=== PATIENT | male | born 1930 ===

== ENCOUNTER 2017-08-26 19:48 | Inpatient (IN) | payer MEDICARE ==
[~2017-08-26] VITALS: Ht 180.3 cm; Wt 80.2 kg
[~2017-08-26 19:48] MED LIST: ALPR.5 PO; AMLO10 PO; AMLO5 PO; ASPI81CH PO; CARB100 PO; CENTRUM SILVER1 EAC2 PO; CIPR250 PO; Carbidopa-Levo1 EAC1 PO; DULOXETINE HCL20 MG PO; ENOX30I SC; Lopressor 25 mg25 MG PO; MELA3 PO; METAMUCIL660 GM; METO100ER PO; OXYACE5T PO; PARO20 PO; QUET25 PO; TAMS.4ER PO
[2017-08-26] MEDS ORDERED: AMOCLA500 PO (20:11)
[2017-08-26] MEDS ORDERED: Acidophilus La100 GM PO (20:12)
[2017-08-26] MEDS ORDERED: Hydrocodone-Ap1 EA23 PO (20:13)
[2017-08-26] MEDS ORDERED: RIVASTIGMINE1.5 MG PO (20:15)
[2017-08-26 20:58] LABS: BASOPHILS ABSOLUTE AUTO 0.05 K/mm3 (0.00-0.23); BASOPHILS PERCENT AUTO 0 % (0-2); EOSINOPHILS ABSOLUTE AUTO 0.04 K/mm3 (0.00-0.68); EOSINOPHILS PERCENT AUTO 0 % (0-6); Hematocrit 40.2 % (37.0-53.0); Hemoglobin 13.2 g/dL (13.5-17.5); IMMATURE GRAN ABSOLUTE AUTO 0.05 K/mm3 (0.00-0.10); IMMATURE GRAN PERCENT AUTO 0 % (0-1); LYMPHOCYTES ABSOLUTE AUTO 0.87 K/mm3 (0.84-5.20); LYMPHOCYTES PERCENT AUTO 6 % (21-46); MONOCYTES PERCENT AUTO 11 % (4-13); Mean Corpuscular HGB 29.2 pg (26.0-34.0); Mean Corpuscular HGB Conc 32.8 g/dL (31.5-36.5); Mean Corpuscular Volume 89 fL (80-100); Mean Platelet Volume 9.6 fL (9.1-12.4); NEUTROPHILS ABSOLUTE AUTO 11.37 K/mm3 (1.96-9.15); NEUTROPHILS PERCENT AUTO 82 % (41-73); Platelet Count 181 K/mm3 (150-400); RDW Standard Deviation 45.4 fL (35.1-46.3); Red Blood Cell Count 4.52 M/mm3 (4.30-5.90); White Blood Cell Count 13.88 K/mm3 (4.00-11.30)
[2017-08-26 21:08] LABS: BODY FLUID RBC 0.053 (0-0)
[2017-08-26 21:17] LABS: Alanine Aminotransfer (ALT/SGP 12 U/L (12-78); Albumin, Blood 2.8 g/dL (3.4-5.0); Albumin/Globulin Ratio 0.9 (0.8-1.8); Alk Phos 88 U/L (50-136); Anion Gap 8 mmol/L (6-16); Aspartate Aminotrans (AST/SGOT 12 U/L (12-37); Bilirubin, Total 1.9 mg/dL (0.1-1.0); Blood Urea Nitrogen 16 mg/dL (8-24); Bun/Creatinine Ratio 20.4 (12.0-20.0); CO2, Blood 26 mmol/L (21-32); Chloride, Blood 103 mmol/L (98-108); Creatinine, Blood 0.79 mg/dL (0.60-1.20); Globulin, Blood 3.2 g/dL (2.2-4.0); Glomerular Filtration Rate >60 (60-); Glucose, Blood 139 mg/dL (70-99); Magnesium, Blood 2.3 mg/dL (1.6-2.4); Potassium, Blood 3.8 mmol/L (3.5-5.5); Sodium, Blood 137 mmol/L (136-145)
[2017-08-26 21:50] LABS: RBC Count, Synovial Fluid 5300 /mm3 (0-0); WBC Count, Synovial Fluid 71860 /mm3 (0-180)
[2017-08-26 21:52] LABS: Monocytes/Macrophages, Synovia 1 % (0-65); Neutrophils, Synovial Fluid 99 % (0-24)
[2017-08-26 21:53] LABS: Appearance, Synovial Fluid Cloudy (Clear); Color, Synovial Fluid Red (None-P Yel)
[2017-08-26] MEDS ORDERED: DOCUPRENE100 MG PO (23:40)
[2017-08-26] MEDS ORDERED: CENTRUM SILVER1 EAC2 PO (23:40)
[2017-08-26] MEDS ORDERED: NATURE'S TEARS15 M1 BOTHEYES (23:41)
[2017-08-26] MEDS ORDERED: Flonase 0.05% N16 GM (23:41)
[2017-08-26] MEDS ORDERED: IBUP600 PO (23:42)
[2017-08-28 05:07] LABS: Hematocrit 39.5 % (37.0-53.0); Hemoglobin 12.8 g/dL (13.5-17.5); Mean Corpuscular HGB 28.6 pg (26.0-34.0); Mean Corpuscular HGB Conc 32.4 g/dL (31.5-36.5); Mean Corpuscular Volume 88 fL (80-100); Platelet Count 176 K/mm3 (150-400); RDW Standard Deviation 45.1 fL (35.1-46.3); Red Blood Cell Count 4.48 M/mm3 (4.30-5.90); White Blood Cell Count 10.04 K/mm3 (4.00-11.30)
[2017-08-28 05:31] LABS: Anion Gap 9 mmol/L (6-16); Blood Urea Nitrogen 13 mg/dL (8-24); Bun/Creatinine Ratio 19.7 (12.0-20.0); CO2, Blood 25 mmol/L (21-32); Calcium, Blood 7.8 mg/dL (8.5-10.1); Chloride, Blood 107 mmol/L (98-108); Creatinine, Blood 0.66 mg/dL (0.60-1.20); Glomerular Filtration Rate >60 (60-); Glucose, Blood 112 mg/dL (70-99); Potassium, Blood 3.6 mmol/L (3.5-5.5); Sodium, Blood 141 mmol/L (136-145)
[2017-08-28 23:20] LABS: Vancomycin, Trough 2.7 ug/mL (5.0-10.0)
[2017-08-29 23:26] LABS: Vancomycin, Trough 12.5 ug/mL (5.0-10.0)
[2017-08-31 05:39] LABS: Hematocrit 42.4 % (37.0-53.0); Hemoglobin 13.8 g/dL (13.5-17.5); Mean Corpuscular HGB 28.6 pg (26.0-34.0); Mean Corpuscular HGB Conc 32.5 g/dL (31.5-36.5); Mean Corpuscular Volume 88 fL (80-100); Mean Platelet Volume 9.3 fL (9.1-12.4); Platelet Count 271 K/mm3 (150-400); RDW Coefficient Variation 13.9 % (11.7-14.2); RDW Standard Deviation 44.8 fL (35.1-46.3); Red Blood Cell Count 4.82 M/mm3 (4.30-5.90); White Blood Cell Count 6.25 K/mm3 (4.00-11.30)
[2017-08-31 05:59] LABS: Anion Gap 6 mmol/L (6-16); Blood Urea Nitrogen 9 mg/dL (8-24); Bun/Creatinine Ratio 12.9 (12.0-20.0); CO2, Blood 30 mmol/L (21-32); Calcium, Blood 8.3 mg/dL (8.5-10.1); Chloride, Blood 106 mmol/L (98-108); Glomerular Filtration Rate >60 (60-); Glucose, Blood 125 mg/dL (70-99); Potassium, Blood 3.8 mmol/L (3.5-5.5); Sodium, Blood 142 mmol/L (136-145)
[2017-08-31 18:17] LABS: Source, Urine Voided
[2017-08-31 18:29] LABS: Appearance, Urine Clear (Clear); Bilirubin, Urine Neg (Neg); Blood, Urine 1+ (Neg); Color, Urine Yellow (P-Yellow); Glucose Qualitative, Urine Neg (Neg); Ketones, Urine 1+ (Neg); Leukocyte Esterase, Urine Neg (Neg); Nitrite, Urine Neg (Neg); Protein, Urine Neg (Neg); Specific Gravity, Urine 1.015 (1.003-1.022); Urobilinogen, Urine NORM (Normal)
[2017-08-31 18:44] LABS: Bacteria Not Seen /hpf; Red Blood Cells, Urine 0-2 /hpf (0-2); Squamous Epithelial Cells Not Seen /hpf (Few); White Blood Cells, Urine Not Seen /hpf (0-5)
[2017-09-01] MEDS ORDERED: CEPH500 PO (11:30)
[2018-04-06] MEDS ORDERED: VICODIN 5-3001 EACH PO (18:27)
== END 2017-09-01 13:20 | disposition home health service (06) | DRG 500 ==
LOC: ER 19:48 → MEDS 22:27 → ENPENDDIS 09-01 10:16 → MEDS 09-01 13:20
PROVIDERS: Emergency Medicine; Internal Medicine
PROC: 0M933ZX Drainage of Right Elbow Bursa and Ligament, Percutaneous Approach, Diagnostic (ICD-10-PCS; 2017-08-26)
PROC: 0MD30ZZ Extraction of Right Elbow Bursa and Ligament, Open Approach (ICD-10-PCS; principal; 2017-08-27)
PROC: 3E0234Z Introduction of Serum, Toxoid and Vaccine into Muscle, Percutaneous Approach (ICD-10-PCS; 2017-08-27)
DX: M71.121 Other infective bursitis, right elbow (principal); G92 Toxic encephalopathy; G62.9 Polyneuropathy, unspecified; L03.113 Cellulitis of right upper limb; G20 Parkinson's disease; I48.0 Paroxysmal atrial fibrillation; F02.80 Dementia in other diseases classified elsewhere, unspecified severity, without behavioral disturbance, psychotic disturbance, mood disturbance, and anxiety; B95.61 Methicillin susceptible Staphylococcus aureus infection as the cause of diseases classified elsewhere; I10 Essential (primary) hypertension; F41.8 Other specified anxiety disorders; F41.9 Anxiety disorder, unspecified; R29.6 Repeated falls; N40.0 Benign prostatic hyperplasia without lower urinary tract symptoms; R41.0 Disorientation, unspecified; T38.3X5A Adverse effect of insulin and oral hypoglycemic [antidiabetic] drugs, initial encounter; Y92.239 Unspecified place in hospital as the place of occurrence of the external cause; Z66 Do not resuscitate; Z23 Encounter for immunization; Z79.82 Long term (current) use of aspirin; Z79.891 Long term (current) use of opiate analgesic; Z79.899 Other long term (current) drug therapy
CPT/HCPCS: 20610; 36415; 70450; 71045; 73080; 80048; 80053; 80202; 81001; 83605; 83735; 85025; 85027; 87040; 87070; 87075; 87077; 87147; 87186; 87205; 89051; 93005; 93010; 96365; 97110; 97116; 97162; 97530; 99285; G8978; G8979; J0690; J1650; J1885; J2060; J3370; J7030; Q2038

== ENCOUNTER 2017-10-07 07:30 | Day surgery (SDC) | payer MEDICARE ==
[~2017-10-07 07:30] MED LIST changes: +AMOCLA500 PO; +Acidophilus La100 GM PO; +CEPH500 PO; +DOCUPRENE100 MG PO; +Flonase 0.05% N16 GM; +Hydrocodone-Ap1 EA23 PO; +IBUP600 PO; +NATURE'S TEARS15 M1 BOTHEYES; +RIVASTIGMINE1.5 MG PO
[2017-10-08] MEDS ORDERED: METO100ER PO (15:23)
[2017-10-08] MEDS ORDERED: ASPI81CH PO (15:23)
[2017-10-08] MEDS ORDERED: AMLO10 PO (15:24)
[2017-10-08] MEDS ORDERED: RIVASTIGMINE1.5 MG PO (15:24)
[2017-10-08] MEDS ORDERED: CARBI50 ×2 (15:25→15:26)
[2017-10-08] MEDS ORDERED: MIRT30 PO (15:26)
[2017-10-08] MEDS ORDERED: QUET100 PO (15:27)
== END 2017-10-07 10:23 | disposition home or self-care (01) ==
LOC: WOUND 07:30
DX: S51.001A Unspecified open wound of right elbow, initial encounter (principal); M70.20 Olecranon bursitis, unspecified elbow; G20 Parkinson's disease; G60.9 Hereditary and idiopathic neuropathy, unspecified; R26.89 Other abnormalities of gait and mobility; I10 Essential (primary) hypertension; I48.91 Unspecified atrial fibrillation
CPT/HCPCS: G0463

== ENCOUNTER 2017-10-08 14:24 | Emergency (ER) | payer MEDICARE ==
[~2017-10-08] VITALS: Ht 177.8 cm; Wt 72.6 kg
[2017-10-08 14:52] LABS: BASOPHILS ABSOLUTE AUTO 0.08 K/mm3 (0.00-0.23); BASOPHILS PERCENT AUTO 2 % (0-2); EOSINOPHILS ABSOLUTE AUTO 0.17 K/mm3 (0.00-0.68); EOSINOPHILS PERCENT AUTO 3 % (0-6); Hematocrit 43.3 % (37.0-53.0); Hemoglobin 13.5 g/dL (13.5-17.5); IMMATURE GRAN ABSOLUTE AUTO 0.01 K/mm3 (0.00-0.10); IMMATURE GRAN PERCENT AUTO 0 % (0-1); LYMPHOCYTES ABSOLUTE AUTO 1.53 K/mm3 (0.84-5.20); LYMPHOCYTES PERCENT AUTO 28 % (21-46); MONOCYTES ABSOLUTE AUTO 0.74 K/mm3 (0.16-1.47); MONOCYTES PERCENT AUTO 14 % (4-13); Mean Corpuscular HGB Conc 31.2 g/dL (31.5-36.5); Mean Corpuscular Volume 90 fL (80-100); NEUTROPHILS ABSOLUTE AUTO 2.93 K/mm3 (1.96-9.15); NEUTROPHILS PERCENT AUTO 54 % (41-73); Platelet Count 328 K/mm3 (150-400); RDW Coefficient Variation 14.3 % (11.7-14.2); RDW Standard Deviation 46.4 fL (35.1-46.3); Red Blood Cell Count 4.83 M/mm3 (4.30-5.90); White Blood Cell Count 5.46 K/mm3 (4.00-11.30)
[2017-10-08 15:04] LABS: Prothrombin Time Results 10.4 Sec (9.7-11.5)
[2017-10-08 15:09] LABS: Alanine Aminotransfer (ALT/SGP 12 U/L (12-78); Albumin, Blood 2.8 g/dL (3.4-5.0); Albumin/Globulin Ratio 0.8 (0.8-1.8); Alk Phos 113 U/L (50-136); Anion Gap 5 mmol/L (6-16); Aspartate Aminotrans (AST/SGOT 18 U/L (12-37); Bilirubin, Total 0.7 mg/dL (0.1-1.0); Blood Urea Nitrogen 11 mg/dL (8-24); CO2, Blood 29 mmol/L (21-32); Calcium, Blood 8.2 mg/dL (8.5-10.1); Chloride, Blood 108 mmol/L (98-108); Creatinine, Blood 0.78 mg/dL (0.60-1.20); Globulin, Blood 3.5 g/dL (2.2-4.0); Glomerular Filtration Rate >60 (60-); Glucose, Blood 96 mg/dL (70-99); Potassium, Blood 4.2 mmol/L (3.5-5.5); Sodium, Blood 142 mmol/L (136-145); Total Protein, Blood 6.3 g/dL (6.4-8.2); Troponin I <0.015 ng/mL (0.000-0.040)
[2017-10-08] MEDS ORDERED: METO100ER PO (15:23)
[2017-10-08] MEDS ORDERED: ASPI81CH PO (15:23)
[2017-10-08] MEDS ORDERED: AMLO10 PO (15:24)
[2017-10-08] MEDS ORDERED: RIVASTIGMINE1.5 MG PO (15:24)
[2017-10-08] MEDS ORDERED: CARBI50 ×2 (15:25→15:26)
[2017-10-08] MEDS ORDERED: MIRT30 PO (15:26)
[2017-10-08] MEDS ORDERED: QUET100 PO (15:27)
== END 2017-10-08 18:00 | disposition home or self-care (01) ==
LOC: ER 14:24
PROVIDERS: Nurse Practitioner Family
DX: R41.82 Altered mental status, unspecified (principal); I10 Essential (primary) hypertension; G20 Parkinson's disease; I48.91 Unspecified atrial fibrillation; N40.0 Benign prostatic hyperplasia without lower urinary tract symptoms; Z91.09 Other allergy status, other than to drugs and biological substances; Z79.82 Long term (current) use of aspirin; Z79.899 Other long term (current) drug therapy
CPT/HCPCS: 70450; 73080; 80053; 81000; 83605; 84484; 85025; 85610; 87070; 87075; 87077; 87205; 93005; 93010

== ENCOUNTER 2017-10-11 08:39 | Day surgery (SDC) | payer MEDICARE ==
[~2017-10-11 08:39] MED LIST changes: +CARBI50; +MIRT30 PO; +QUET100 PO
== END 2017-10-11 23:21 | disposition home or self-care (01) ==
LOC: WOUND 08:39
PROC: 0H5 Skin and Breast, Destruction (ICD-10-PCS; principal; 2017-10-11)
DX: S51.001A Unspecified open wound of right elbow, initial encounter (principal); M70.20 Olecranon bursitis, unspecified elbow; G20 Parkinson's disease; G60.9 Hereditary and idiopathic neuropathy, unspecified; R26.89 Other abnormalities of gait and mobility; I10 Essential (primary) hypertension
CPT/HCPCS: G0463

== ENCOUNTER 2017-10-18 10:15 | Day surgery (SDC) | payer MEDICARE | END 2017-10-18 12:10 | disposition home or self-care (01) | LOC: WOUND 10:15 | DX: Z48.00 Encounter for change or removal of nonsurgical wound dressing (principal); M70.20 Olecranon bursitis, unspecified elbow; G20 Parkinson's disease; G60.9 Hereditary and idiopathic neuropathy, unspecified; R26.89 Other abnormalities of gait and mobility; I10 Essential (primary) hypertension | CPT/HCPCS: G0463 ==

== ENCOUNTER 2017-10-22 10:28 | Day surgery (SDC) | payer MEDICARE ==
[~2017-10-22] VITALS: Ht 175.3 cm; Wt 78.1 kg
== END 2017-10-22 14:55 | disposition home or self-care (01) ==
LOC: ORSCSDS 10:28
PROVIDERS: Orthopaedic Surgery
PROC: 0R9L0ZX Drainage of Right Elbow Joint, Open Approach, Diagnostic (ICD-10-PCS; principal; 2017-10-22 12:00)
DX: M70.21 Olecranon bursitis, right elbow (principal); I10 Essential (primary) hypertension; G20 Parkinson's disease; F02.80 Dementia in other diseases classified elsewhere, unspecified severity, without behavioral disturbance, psychotic disturbance, mood disturbance, and anxiety; Z79.82 Long term (current) use of aspirin; Z79.899 Other long term (current) drug therapy
CPT/HCPCS: 88304; J0690; J1100; J2405; J3010; J7040; J7120

== ENCOUNTER 2017-10-25 10:06 | Day surgery (SDC) | payer MEDICARE | END 2017-10-25 22:47 | disposition home or self-care (01) | LOC: WOUND 10:06 | DX: Z48.00 Encounter for change or removal of nonsurgical wound dressing (principal); M70.20 Olecranon bursitis, unspecified elbow; G20 Parkinson's disease; F02.80 Dementia in other diseases classified elsewhere, unspecified severity, without behavioral disturbance, psychotic disturbance, mood disturbance, and anxiety; I48.2 Chronic atrial fibrillation | CPT/HCPCS: 87070; 87205; G0463 ==

== ENCOUNTER 2017-11-01 09:07 | Day surgery (SDC) | payer MEDICARE | END 2017-11-01 22:59 | disposition home or self-care (01) | LOC: WOUND 09:07 | DX: Z48.00 Encounter for change or removal of nonsurgical wound dressing (principal); M70.20 Olecranon bursitis, unspecified elbow; G20 Parkinson's disease; G60.9 Hereditary and idiopathic neuropathy, unspecified; R26.89 Other abnormalities of gait and mobility; I10 Essential (primary) hypertension | CPT/HCPCS: G0463 ==

== ENCOUNTER 2017-11-08 10:00 | Day surgery (SDC) | payer MEDICARE | END 2017-11-08 11:16 | disposition home or self-care (01) | LOC: WOUND | DX: Z48.00 Encounter for change or removal of nonsurgical wound dressing (principal); M70.20 Olecranon bursitis, unspecified elbow; G20 Parkinson's disease; G60.9 Hereditary and idiopathic neuropathy, unspecified; R26.89 Other abnormalities of gait and mobility; I10 Essential (primary) hypertension | CPT/HCPCS: G0463 ==

== ENCOUNTER 2017-11-22 10:00 | Day surgery (SDC) | payer MEDICARE | END 2017-11-22 10:49 | disposition home or self-care (01) | LOC: WOUND 10:00 | DX: Z48.00 Encounter for change or removal of nonsurgical wound dressing (principal); M70.22 Olecranon bursitis, left elbow; G20 Parkinson's disease; G60.9 Hereditary and idiopathic neuropathy, unspecified; R26.89 Other abnormalities of gait and mobility; I10 Essential (primary) hypertension | CPT/HCPCS: G0463 ==

== ENCOUNTER 2017-11-29 09:56 | Day surgery (SDC) | payer MEDICARE | END 2017-11-29 10:36 | disposition home or self-care (01) | LOC: WOUND 09:56 | DX: Z48.00 Encounter for change or removal of nonsurgical wound dressing (principal); M70.21 Olecranon bursitis, right elbow; G20 Parkinson's disease; G60.9 Hereditary and idiopathic neuropathy, unspecified; R26.89 Other abnormalities of gait and mobility; I10 Essential (primary) hypertension | CPT/HCPCS: G0463 ==

== ENCOUNTER 2017-12-06 10:06 | Day surgery (SDC) | payer MEDICARE | END 2017-12-06 23:20 | disposition home or self-care (01) | LOC: WOUND 10:06 | DX: M70.21 Olecranon bursitis, right elbow (principal); G20 Parkinson's disease; G60.9 Hereditary and idiopathic neuropathy, unspecified; R26.89 Other abnormalities of gait and mobility; I10 Essential (primary) hypertension ==

== ENCOUNTER 2017-12-13 09:54 | Day surgery (SDC) | payer MEDICARE | END 2017-12-13 11:22 | disposition home or self-care (01) | LOC: WOUND 09:54 | PROC: 0HBDXZZ Excision of Right Lower Arm Skin, External Approach (ICD-10-PCS; principal; 2017-12-13) | DX: M70.21 Olecranon bursitis, right elbow (principal); G20 Parkinson's disease; G60.9 Hereditary and idiopathic neuropathy, unspecified; R26.89 Other abnormalities of gait and mobility; I10 Essential (primary) hypertension | CPT/HCPCS: G0463 ==

== ENCOUNTER 2017-12-20 10:30 | Day surgery (SDC) | payer MEDICARE | END 2017-12-20 11:22 | disposition home or self-care (01) | LOC: WOUND 10:30 | DX: Z48.00 Encounter for change or removal of nonsurgical wound dressing (principal); S51.001A Unspecified open wound of right elbow, initial encounter; M70.21 Olecranon bursitis, right elbow; G20 Parkinson's disease; G60.9 Hereditary and idiopathic neuropathy, unspecified; R26.89 Other abnormalities of gait and mobility; I10 Essential (primary) hypertension | CPT/HCPCS: G0463 ==

== ENCOUNTER 2017-12-27 10:00 | Day surgery (SDC) | payer MEDICARE | END 2017-12-27 10:42 | disposition home or self-care (01) | LOC: WOUND 10:00 | DX: S51.001A Unspecified open wound of right elbow, initial encounter (principal); M70.21 Olecranon bursitis, right elbow; L02.413 Cutaneous abscess of right upper limb; G20 Parkinson's disease; G60.9 Hereditary and idiopathic neuropathy, unspecified; R26.89 Other abnormalities of gait and mobility; F02.80 Dementia in other diseases classified elsewhere, unspecified severity, without behavioral disturbance, psychotic disturbance, mood disturbance, and anxiety; I48.2 Chronic atrial fibrillation; Z91.81 History of falling; I10 Essential (primary) hypertension | CPT/HCPCS: G0463 ==

== ENCOUNTER 2018-01-03 10:00 | Day surgery (SDC) | payer MEDICARE | END 2018-01-03 10:48 | disposition home or self-care (01) | LOC: WOUND 10:00 | PROC: 0H5 Skin and Breast, Destruction (ICD-10-PCS; principal; 2018-01-03) | DX: M70.21 Olecranon bursitis, right elbow (principal); G20 Parkinson's disease; G60.9 Hereditary and idiopathic neuropathy, unspecified; R26.89 Other abnormalities of gait and mobility; I10 Essential (primary) hypertension; S51.001D Unspecified open wound of right elbow, subsequent encounter; F02.80 Dementia in other diseases classified elsewhere, unspecified severity, without behavioral disturbance, psychotic disturbance, mood disturbance, and anxiety; I48.2 Chronic atrial fibrillation; M00.9 Pyogenic arthritis, unspecified | CPT/HCPCS: G0463 ==

== ENCOUNTER 2018-02-01 00:45 | Day surgery (SDC) | payer MEDICARE | END 2018-02-01 09:17 | disposition home or self-care (01) | LOC: ATC 00:45 | DX: M70.20 Olecranon bursitis, unspecified elbow (principal); S51.001D Unspecified open wound of right elbow, subsequent encounter; G20 Parkinson's disease; I10 Essential (primary) hypertension; E04.1 Nontoxic single thyroid nodule | CPT/HCPCS: 99211 ==

== ENCOUNTER 2018-06-15 12:24 | Emergency (ER) | payer MEDICARE ==
[~2018-06-15] VITALS: Ht 175.3 cm; Wt 86.2 kg
[~2018-06-15 12:24] MED LIST changes: +VICODIN 5-3001 EACH PO
== END 2018-06-15 14:41 | disposition home or self-care (01) ==
LOC: ER 12:24
DX: S92.524A Nondisplaced fracture of middle phalanx of right lesser toe(s), initial encounter for closed fracture (principal); I10 Essential (primary) hypertension; I48.91 Unspecified atrial fibrillation; F41.9 Anxiety disorder, unspecified; X58.XXXA Exposure to other specified factors, initial encounter
CPT/HCPCS: 73660; 99283-25

== ENCOUNTER 2018-09-19 00:37 | Inpatient (IN) | payer MEDICARE ==
[~2018-09-19] VITALS: Ht 177.8 cm; Wt 73.7 kg
[~2018-09-19 00:37] MED LIST changes: +Aspirin EC81 MG PO; +RIVASTIGMINE3 MG PO
[2018-09-19 01:02] LABS: BASOPHILS ABSOLUTE AUTO 0.09 K/mm3 (0.00-0.23); BASOPHILS PERCENT AUTO 1 % (0-2); EOSINOPHILS ABSOLUTE AUTO 0.22 K/mm3 (0.00-0.68); EOSINOPHILS PERCENT AUTO 4 % (0-6); Hematocrit 53.6 % (37.0-53.0); Hemoglobin 16.8 g/dL (13.5-17.5); IMMATURE GRAN ABSOLUTE AUTO 0.01 K/mm3 (0.00-0.10); IMMATURE GRAN PERCENT AUTO 0 % (0-1); LYMPHOCYTES ABSOLUTE AUTO 1.94 K/mm3 (0.84-5.20); LYMPHOCYTES PERCENT AUTO 31 % (21-46); MONOCYTES PERCENT AUTO 13 % (4-13); Mean Corpuscular HGB 27.9 pg (26.0-34.0); Mean Corpuscular HGB Conc 31.3 g/dL (31.5-36.5); Mean Corpuscular Volume 89 fL (80-100); Mean Platelet Volume 9.9 fL (9.1-12.4); NEUTROPHILS ABSOLUTE AUTO 3.31 K/mm3 (1.96-9.15); NEUTROPHILS PERCENT AUTO 52 % (41-73); Platelet Count 204 K/mm3 (150-400); RDW Standard Deviation 49.3 fL (35.1-46.3); Red Blood Cell Count 6.02 M/mm3 (4.30-5.90); White Blood Cell Count 6.37 K/mm3 (4.00-11.30)
[2018-09-19 01:05] LABS: Calcium, Ionized (POC) 0.96 mmol/L (1.10-1.46); Potassium (POC) 4.5 mmol/L (3.5-5.5)
[2018-09-19 01:21] LABS: Alanine Aminotransfer (ALT/SGP 11 U/L (12-78); Albumin, Blood 3.7 g/dL (3.4-5.0); Albumin/Globulin Ratio 1.1 (0.8-1.8); Alk Phos 80 U/L (50-136); Anion Gap 5 mmol/L (6-16); Aspartate Aminotrans (AST/SGOT 19 U/L (12-37); Bilirubin, Total 0.7 mg/dL (0.1-1.0); Blood Urea Nitrogen 13 mg/dL (8-24); Bun/Creatinine Ratio 14.1 (12.0-20.0); CO2, Blood 33 mmol/L (21-32); Calcium, Blood 8.7 mg/dL (8.5-10.1); Chloride, Blood 108 mmol/L (98-108); Creatinine, Blood 0.92 mg/dL (0.60-1.20); Globulin, Blood 3.4 g/dL (2.2-4.0); Glomerular Filtration Rate >60 (60-); Glucose, Blood 126 mg/dL (70-99); Potassium, Blood 4.5 mmol/L (3.5-5.5); Sodium, Blood 146 mmol/L (136-145); Total Protein, Blood 7.1 g/dL (6.4-8.2); Troponin I <0.015 ng/mL (0.000-0.040)
[2018-09-19 02:00] LABS: Base Excess Venous 7.8 mmol/L; Bicarbonate Venous 27.7 mmol/L (24.0-30.0); PCO2 Venous 67.2 mmHg (38-42); PO2 Venous 35.5 mmHg (38-42); pH Blood Venous 7.31 (7.34-7.37)
[2018-09-19 09:25] LABS: Hematocrit 48.6 % (37.0-53.0); Hemoglobin 15.5 g/dL (13.5-17.5); Mean Corpuscular HGB 28.2 pg (26.0-34.0); Mean Corpuscular HGB Conc 31.9 g/dL (31.5-36.5); Mean Corpuscular Volume 88 fL (80-100); Mean Platelet Volume 10.6 fL (9.1-12.4); Platelet Count 146 K/mm3 (150-400); RDW Coefficient Variation 15.1 % (11.7-14.2); RDW Standard Deviation 49.6 fL (35.1-46.3); White Blood Cell Count 5.25 K/mm3 (4.00-11.30)
[2018-09-19 09:39] LABS: Alanine Aminotransfer (ALT/SGP 14 U/L (12-78); Albumin, Blood 3.1 g/dL (3.4-5.0); Albumin/Globulin Ratio 1.1 (0.8-1.8); Alk Phos 67 U/L (50-136); Anion Gap 5 mmol/L (6-16); Aspartate Aminotrans (AST/SGOT 11 U/L (12-37); Bilirubin, Total 1.2 mg/dL (0.1-1.0); Blood Urea Nitrogen 12 mg/dL (8-24); Bun/Creatinine Ratio 13.8 (12.0-20.0); CO2, Blood 32 mmol/L (21-32); Chloride, Blood 110 mmol/L (98-108); Creatinine, Blood 0.87 mg/dL (0.60-1.20); Globulin, Blood 2.9 g/dL (2.2-4.0); Glomerular Filtration Rate >60 (60-); Glucose, Blood 97 mg/dL (70-99); Potassium, Blood 3.8 mmol/L (3.5-5.5); Sodium, Blood 147 mmol/L (136-145)
[2018-09-19 09:45] LABS: CPK Creatine Kinase 41 U/L (39-308); Troponin I <0.015 ng/mL (0.000-0.040)
--- NOTE | 2018-09-19 09:57 | NUR ---
At request of patient's family members I entered patient's room in ER-5 and immediately family asked for a health assessment and treatment teacher to pray a last rites prayer for patient. I told patient that I would contact Father Peewee as soon as he arrives and have him visit patient and family. I provided a calming presence and provided prayer. Family was very appreciative of the prayer. I will continue to remain available to patient and family.
[2018-09-19 11:41] LABS: Source, Urine Clean Catch
[2018-09-19 11:44] LABS: Bilirubin, Urine Neg (Neg); Blood, Urine 5+ (Neg); Glucose Qualitative, Urine Neg (Neg); Ketones, Urine Neg (Neg); Leukocyte Esterase, Urine 1+ (Neg); Nitrite, Urine Neg (Neg); Protein, Urine 1+ (Neg); Urobilinogen, Urine NORM (Normal); pH, Urine 6.5 (5.0-8.0)
[2018-09-19 12:29] LABS: Appearance, Urine Cloudy (Clear); Color, Urine Amber (P-Yellow)
[2018-09-19 12:30] LABS: Bacteria Rare /hpf; Red Blood Cells, Urine TNTC /hpf (0-2); Squamous Epithelial Cells Not Seen /hpf (Few); White Blood Cells, Urine 0-2 /hpf (0-5)
--- NOTE | 2018-09-19 12:30 | NUR ---
ECHOCARDIOGRAM COMPLETE
--- NOTE | 2018-09-19 12:40 | NUR ---
Patient arrived via gurney from ER after report from [facility]. He was a 4 person slide transfer. He awakened during transfer and helped with positioning. He arrived with BIPAP setting 14/7 and 30% FiO2 and sats 99%. He had 14Fr.roberson placed in ER and on arrival had bryanna red blood in bag and tubing, flushed with bloody return. He has FS LAC draws and flushed and SL'd. Family at bedside.
[2018-09-19] MEDS ORDERED: TRAZ150T57 PO (13:16)
--- NOTE | 2018-09-19 15:00 | NUR ---
Patient has been resting on Bipap most afetrnoon and family is present in room and are trying to get him to communicate. I placed in on 4L O2 via NC and he continued to sat 94-97% and starting to awake, and squirm in bed. Son and daughter are helping with his direction. He was opening eyes and starting to communicate in one word answers
[2018-09-19 17:14] LABS: CPK Creatine Kinase 48 U/L (39-308); Troponin I <0.015 ng/mL (0.000-0.040)
--- NOTE | 2018-09-19 17:30 | NUR ---
when rounding on patient she was awake and cooperating with care. She was able to hold conversatin clearly. I removed restraints as she was following direction. She remains on 0.5 mcg/kg/hr Precedex, NS at 150ml/hr. She remains on 2L O2 via NC and sats low 90%'s. She lays supine with HOB at 20 degress and denies wanting to be pulled up. She currently denies any pain.
--- NOTE | 2018-09-19 17:30 | NUR ---
Son helped get patient up to recliner and placed antonia on him as he was trying to get out of bed, LAC FS game out and cleaned site. After a little bit returned him to bed with sons help. His anxiety was increasing and roberson still had bryanna blood coming out so deflated ballon and it fell out. We replaced new 16fr roberson and alot of blood and ureine came out and he relaxed. He has been resting since then. He continues to leak blood from end of penis, have changed attends several times.
[2018-09-19 18:36] LABS: Source, Urine Catheter
[2018-09-19 18:40] LABS: Bilirubin, Urine Neg (Neg); Blood, Urine 3+ (Neg); Glucose Qualitative, Urine Neg (Neg); Ketones, Urine Neg (Neg); Leukocyte Esterase, Urine Neg (Neg); Nitrite, Urine Neg (Neg); Protein, Urine 4+ (Neg); Urobilinogen, Urine NORM (Normal)
[2018-09-19 18:50] LABS: Appearance, Urine Bloody (Clear); Color, Urine Red (P-Yellow)
[2018-09-19 18:52] LABS: Bacteria Few /hpf; Red Blood Cells, Urine TNTC /hpf (0-2); Squamous Epithelial Cells Not Seen /hpf (Few); White Blood Cells, Urine 0-2 /hpf (0-5)
--- NOTE | 2018-09-19 19:30 | NUR ---
ASSESSMENT PT AWAKE TRYING TO CLIMB OUT OF BED. SON AT BEDSIDE TALKING WITH PT. PT NONVERBAL BUT FOLLOWING SIMPLE INSTRUCTIONS FROM SON. PT WITH BLEEDING AROUND CALDERON CATH. LARGE AMT OF BLOOD NOTED IN TUBING. CALDERON FLUSHED WITH 60 ML SETRILE WATER, LEAKING AROUND MEATUS. PT STOOD AT BEDSIDE WITH SON THAN TO BSC WHILE LINEN CHANGED, ATTENDS CHANGED AND ALIZE CARE DONE. LUNGS CLEAR ON ROOMAIR. RESP EVEN AND NONLABORED. SPO2 93-95% ON ROOMAIR. HEART RATE 100-110'S. PT STABLE. IV 20G TO RIGHT FOREARM SALINE LOCKED, SITE CLEAR. DNR BAND PLACED TO RIGHT WRIST. PT BACK TO BED. BED ALARM ON. BLOODY DRAINAGE AROUND MEATUS SLOWING DOWN WITH CONT TO MONITOR. POSSIBLE CHANGE OUT CALDERON FOR LARGER CATH.
[2018-09-19] MEDS ORDERED: SINEMET 25-1001 EACH PO (20:00)
--- NOTE | 2018-09-20 00:04 | NUR ---
REASSESSMENT PT SLEEPING AWAKENS EASILY TO VERBAL STIMULI. CALDERON WITH SMALL AMT OF BLOODY FLUID IN TUBE. FLUSHED CALDERON WITH 50 ML STERIL SALINE. SMALL CLOTS NOTED, MIN DRAINAGE AROUND MEATUS. PT REPOSITIONED. FLAGYL STARTED. VSS. PT RESTING QUIELTY
--- NOTE | 2018-09-20 04:46 | NUR ---
REPORT OFF TO MATTIE Joseph RN
--- NOTE | 2018-09-20 07:20 | NUR ---
ASSUMED CARE OF PT AFTER 0400 THIS AM, HE HAS RESTED QUIETLY, NONVERBAL AT THIS TIME, MAINTAINING SATS ON ROOM AIR, NO INCREASED WORK OF BREATHING NOTED. HEART RATE REMAINS STABLE, SINUS ON MONITOR. URINE COLOR IMPROVING, REMAINS RED BUT LIGHTENING TO A CRANBERRY COLOR. OTHERWISE NO ACUTE CHANGES
--- NOTE | 2018-09-20 07:50 | NUR ---
AM ASSESSMENT: Pt dozing in bed. Appears very comfortable. LS diminished in bases. HR reg with prominant murmur heard. BT positive. Pulses palp. Pt wakes to verbal stimulus and soft touch. Does not answer questions or follow commands from RN but does answer one word or sentence questions/statemenst from family or CG. Pt has baseline dementia with minimal talking. Smith cath draining dark red bloody urine. Attends in place with some minimal oozing at tip of penis. Bed alarm on. Call light in reach. Will monitor.
--- NOTE | 2018-09-20 08:55 | NUR ---
update: REport given to CELESTINO Grace and care transfered. Caregiver in room and Pt states that he is hungry. Will call physician for possible orders. No other changes at this time.
--- NOTE | 2018-09-20 09:39 | NUR ---
ASSUMED CARE RECIEVED REPORT FROM ANA TIRADO AT BEDSIDE AND ASSUMED CARE OF PT APPROX 0845. PT ABLE TO SIT UP AND OPEN EYES AND GIVE VERBAL RESPINSES TO A COUPLE OF QUESTIONS. PT ABLE TO VERBALLY SAY HE WAS HUNGRY. PT ON RA WITH SATS IN 90'S. NO S/SX OF ACUTE DISTRESS OR SHORTNESS OF BREATH. PMD IN OT SEE PT THIS AM. CALDERON REMAINS IN PLACE AT THIS TIME. PATENT AND DRAINING. CLOSE FAMILY FRIEND AT BEDSIDE THIS MORNING. BED IN LOW POSITION, BED ALARM ON, CALL LIGHT IN REACH AND PT DENIES ANY NEEDS AT THIS TIME. WILL CONTINUE TO MONITOR.
[2018-09-20 12:54] LABS: Adenovirus Not Detected (NOT DETECT); Bordetella pertussis Not Detected (NOT DETECT); Chlamydophila pneumoniae Not Detected (NOT DETECT); Coronavirus 229E Not Detected (NOT DETECT); Coronavirus HKU1 Not Detected (NOT DETECT); Coronavirus NL63 Not Detected (NOT DETECT); Coronavirus OC43 Not Detected (NOT DETECT); Human Metapneumovirus Not Detected (NOT DETECT); Human Rhinovirus/Enterovirus Not Detected (NOT DETECT); Influenza A Not Detected (NOT DETECT); Influenza A/2009-H1 Not Detected (NOT DETECT); Influenza A/H1 Not Detected (NOT DETECT); Influenza A/H3 Not Detected (NOT DETECT); Influenza B Not Detected (NOT DETECT); Mycoplasma pneumoniae Not Detected (NOT DETECT); Parainfluenza Virus 1 Not Detected (NOT DETECT); Parainfluenza Virus 2 Not Detected (NOT DETECT); Parainfluenza Virus 3 Not Detected (NOT DETECT); Parainfluenza Virus 4 Not Detected (NOT DETECT); Respiratory Syncytial Virus Not Detected (NOT DETECT)
--- NOTE | 2018-09-20 14:02 | NUR ---
Pt. is lying in bed weak and slow to talk. The spouse is i the room and said pt. is is doing much bttr today , encouraged pt and offered Pt. is lying in bed resting,then spouse is in the room and reports that pt. is doing much better today,encouraged pt and prayed for him
--- NOTE | 2018-09-20 14:04 | NUR ---
CALDERON CATHERTER REMOVED APPROX. 1350.
--- NOTE | 2018-09-20 18:01 | NUR ---
SHIFT SUMMARY PT MENTATION REMAINS UNCHANGED. IN REPORT FROM RN AND FAMILY PT MUCH MORE ALERT THAN PRECIOUSLY HAD BEEN. PT ABLE TO SIT UP OPEN EYES AND HAVE CONVERSATION AT TIMES. PT ABLE TO ANSWER SOME QUESTIONS WHEN ASKED. OTHER QUESTIONS PT WOULD LOOK AT STAFF BUT NOT RESPOND. PT ABLE TO EXPRESS SOME WISHES AND NEEDS VERBALLY. FAMILY REPORTS THIS IS ALMOST PT BASELINE. CALDERON WAS REMOVED APPROX. 1350. PT URINATED WITHIN THE HOUR AFTER REMOVING THIS. PT CONTINUES TO BE INCONTINENT BUT HAS HAD SEVERAL WET ATTENDS CHANGES. PT HAS SOME INCREASED AGGITATION THIS EVENING. REPORTS THIS HAPPENS AT TIMES AT BASELINE. ABLE TO TALK WITH PT AND HELP CALM DOWN. PT ABLE TO SIT UP AND EAT DURING EACH MEAL. PT REMAINS SITTING UP IN BED AT THIS TIME. BED IN LOW POSITION, BED ALARM ON, CALL LIGHT IN REACH AND PT DENIES ANY NEEDS AT THIS TIME. WILL CONTINUE TO MONITOR UNTIL HANDOFF TO NIGHTSHIFT RN.
--- NOTE | 2018-09-21 06:00 | NUR ---
NOC SHIFT SUMMARY PT TRANSFERED TO ROOM AT 2030 THIS NIGHT. HE HAS BEEN VERY SLEEPY. ANSWERES QUESTIONS INTERMITANTLY AND ONLY WITH ONE WORD ANSWERES. PT HAS HAD BLOODY ATTENDS DURING ATTENDS CHANGES. THIS WAS RELATED TO ME DURING REPORT FROM ICU NURSE. PT HAD HAD CALDERON CATH IN ICU AND HAD PULLED IT. VSS. NO ACUTE CHANGES NOTED IN PT THIS SHIFT. HE CURRENTLY APPEARS IN NO ACUTE DISTRESS AND IS SLEEPING RESTFULY AND EASILY AROUSED. WILL CONTINUE TO MONITOR.
[2018-09-21 08:41] LABS: Anion Gap 6 mmol/L (6-16); Blood Urea Nitrogen 22 mg/dL (8-24); Bun/Creatinine Ratio 29.3 (12.0-20.0); CO2, Blood 30 mmol/L (21-32); Calcium, Blood 8.4 mg/dL (8.5-10.1); Chloride, Blood 110 mmol/L (98-108); Creatinine, Blood 0.75 mg/dL (0.60-1.20); Glomerular Filtration Rate >60 (60-); Glucose, Blood 109 mg/dL (70-99); Sodium, Blood 146 mmol/L (136-145)
[2018-09-21] MEDS ORDERED: Augmentin 875-1 EACH PO (11:24)
--- NOTE | 2018-09-21 13:19 | NUR ---
Met pt. lying in bed and family in the room with pt on visit well pt . li much better encouraged pt. and offered spiritual support and prayers
--- NOTE | 2018-09-21 13:40 | NUR ---
SHIFT SUMMARY/DC PT HAS HAD NO ACUTE CHANGES THIS SHIFT, NO COMPLAINTS OF ANY KIND. REVIEWED DC INSTRUCTIONS W/SPOUSE AND CG, BOTH VERBALIZED UNDERSTANDING. PT WAS TRANSPORTED VIA W/C TO DC IN PRIVATE VEHICLE @ 1340.
== END 2018-09-21 13:36 | disposition home or self-care (01) | DRG 208 ==
LOC: ER 00:37 → ERHOLD 05:49 → ICUE 12:30 → MEDS 09-20 20:20 → ENPENDDIS 09-21 10:00 → MEDS 09-21 13:36
PROVIDERS: Emergency Medicine; Hospitalist; ADMIT Internal Medicine
PROC: 5A1935Z Respiratory Ventilation, Less than 24 Consecutive Hours (ICD-10-PCS; principal; 2018-09-19)
DX: J96.01 Acute respiratory failure with hypoxia (principal); G92 Toxic encephalopathy; G20 Parkinson's disease; I16.0 Hypertensive urgency; F03.90 Unspecified dementia, unspecified severity, without behavioral disturbance, psychotic disturbance, mood disturbance, and anxiety; R31.9 Hematuria, unspecified; Z66 Do not resuscitate; I10 Essential (primary) hypertension; J96.02 Acute respiratory failure with hypercapnia; I48.0 Paroxysmal atrial fibrillation; N40.0 Benign prostatic hyperplasia without lower urinary tract symptoms
CPT/HCPCS: 36415; 51702; 51703; 71045; 80047; 80048; 80053; 81001; 82550; 82803; 83605; 83880; 84145; 84484; 85014; 85025; 85027; 87086; 87486; 87581; 87633; 87798; 93005; 93010; 93306; 94660; 96365-59; 96366-59; 96372-59; 96375-59; 96376-59; 99285-25; J0360; J0696; J1650; J1940; J7050

== ENCOUNTER 2018-11-21 01:30 | Emergency (ER) | payer MEDICARE ==
[~2018-11-21] VITALS: Ht 182.9 cm; Wt 74.8 kg
[~2018-11-21 01:30] MED LIST changes: +Augmentin 875-1 EACH PO; +SINEMET 25-1001 EACH PO; +TRAZ150T57 PO
[2018-11-21 01:50] LABS: BASOPHILS ABSOLUTE AUTO 0.12 K/mm3 (0.00-0.23); BASOPHILS PERCENT AUTO 2 % (0-2); EOSINOPHILS PERCENT AUTO 4 % (0-6); Hematocrit 51.6 % (37.0-53.0); Hemoglobin 16.5 g/dL (13.5-17.5); IMMATURE GRAN ABSOLUTE AUTO 0.01 K/mm3 (0.00-0.10); IMMATURE GRAN PERCENT AUTO 0 % (0-1); LYMPHOCYTES ABSOLUTE AUTO 1.99 K/mm3 (0.84-5.20); LYMPHOCYTES PERCENT AUTO 27 % (21-46); MONOCYTES ABSOLUTE AUTO 0.92 K/mm3 (0.16-1.47); MONOCYTES PERCENT AUTO 13 % (4-13); Mean Corpuscular HGB 27.7 pg (26.0-34.0); Mean Corpuscular Volume 87 fL (80-100); Mean Platelet Volume 9.5 fL (9.1-12.4); NEUTROPHILS ABSOLUTE AUTO 4.02 K/mm3 (1.96-9.15); NEUTROPHILS PERCENT AUTO 55 % (41-73); Platelet Count 221 K/mm3 (150-400); RDW Coefficient Variation 13.8 % (11.7-14.2); RDW Standard Deviation 44.2 fL (35.1-46.3); Red Blood Cell Count 5.95 M/mm3 (4.30-5.90); White Blood Cell Count 7.36 K/mm3 (4.00-11.30)
[2018-11-21 02:02] LABS: Alanine Aminotransfer (ALT/SGP 14 U/L (12-78); Albumin, Blood 3.8 g/dL (3.4-5.0); Albumin/Globulin Ratio 1.1 (0.8-1.8); Alk Phos 75 U/L (50-136); Anion Gap 5 mmol/L (6-16); Aspartate Aminotrans (AST/SGOT 23 U/L (12-37); Bilirubin, Total 0.9 mg/dL (0.1-1.0); Blood Urea Nitrogen 13 mg/dL (8-24); Bun/Creatinine Ratio 14.7 (12.0-20.0); CO2, Blood 32 mmol/L (21-32); Calcium, Blood 8.8 mg/dL (8.5-10.1); Chloride, Blood 105 mmol/L (98-108); Creatinine, Blood 0.88 mg/dL (0.60-1.20); Globulin, Blood 3.5 g/dL (2.2-4.0); Glomerular Filtration Rate >60 (60-); Glucose, Blood 113 mg/dL (70-99); Potassium, Blood 3.8 mmol/L (3.5-5.5); Sodium, Blood 142 mmol/L (136-145); Total Protein, Blood 7.3 g/dL (6.4-8.2)
[2018-11-21 02:40] LABS: Source, Urine Clean Catch
[2018-11-21 02:43] LABS: Bilirubin, Urine Neg (Neg); Blood, Urine 3+ (Neg); Glucose Qualitative, Urine Neg (Neg); Ketones, Urine 1+ (Neg); Leukocyte Esterase, Urine Neg (Neg); Nitrite, Urine Neg (Neg); Protein, Urine 2+ (Neg); Specific Gravity, Urine 1.025 (1.003-1.022); Urobilinogen, Urine NORM (Normal)
[2018-11-21 02:44] LABS: Appearance, Urine Clear (Clear); Color, Urine Yellow (P-Yellow)
[2018-11-21 02:50] LABS: White Blood Cells, Urine 0-2 /hpf (0-5)
[2018-11-21 02:51] LABS: Bacteria Mod /hpf; Mucus Light (0-Heavy); Squamous Epithelial Cells Not Seen /hpf (Few)
[2018-11-21] MEDS ORDERED: Prednisone10 MG PO (02:58)
== END 2018-11-21 03:16 | disposition home or self-care (01) ==
LOC: ER 01:30
PROVIDERS: Emergency Medicine
DX: G20 Parkinson's disease (principal); F02.80 Dementia in other diseases classified elsewhere, unspecified severity, without behavioral disturbance, psychotic disturbance, mood disturbance, and anxiety; I10 Essential (primary) hypertension; Z88.8 Allergy status to other drugs, medicaments and biological substances; Z79.899 Other long term (current) drug therapy; Z79.82 Long term (current) use of aspirin; I48.91 Unspecified atrial fibrillation; F41.9 Anxiety disorder, unspecified
CPT/HCPCS: 51701; 71046; 80053; 81001; 83880; 85025; 87086; 93005; 93010; 99285-25

== ENCOUNTER 2018-12-19 20:58 | Emergency (ER) | payer MEDICARE ==
[~2018-12-19] VITALS: Ht 182.9 cm; Wt 90.7 kg
[~2018-12-19 20:58] MED LIST changes: +Prednisone10 MG PO
[2018-12-19] MEDS ORDERED: SINEMET 25-1001 EACH PO (21:17)
[2018-12-19] MEDS ORDERED: MIRT30 PO (21:18)
[2018-12-19] MEDS ORDERED: Docusate Sodiu1 EACH PO (21:18)
[2018-12-19 21:47] LABS: BASOPHILS ABSOLUTE AUTO 0.07 K/mm3 (0.00-0.23); BASOPHILS PERCENT AUTO 1 % (0-2); EOSINOPHILS ABSOLUTE AUTO 0.08 K/mm3 (0.00-0.68); EOSINOPHILS PERCENT AUTO 1 % (0-6); Hematocrit 50.2 % (37.0-53.0); IMMATURE GRAN ABSOLUTE AUTO 0.01 K/mm3 (0.00-0.10); IMMATURE GRAN PERCENT AUTO 0 % (0-1); LYMPHOCYTES ABSOLUTE AUTO 1.67 K/mm3 (0.84-5.20); LYMPHOCYTES PERCENT AUTO 24 % (21-46); MONOCYTES ABSOLUTE AUTO 0.88 K/mm3 (0.16-1.47); MONOCYTES PERCENT AUTO 12 % (4-13); Mean Corpuscular HGB Conc 31.9 g/dL (31.5-36.5); Mean Corpuscular Volume 88 fL (80-100); Mean Platelet Volume 10.2 fL (9.1-12.4); NEUTROPHILS PERCENT AUTO 62 % (41-73); Platelet Count 189 K/mm3 (150-400); RDW Coefficient Variation 13.9 % (11.7-14.2); RDW Standard Deviation 44.7 fL (35.1-46.3); Red Blood Cell Count 5.72 M/mm3 (4.30-5.90); White Blood Cell Count 7.11 K/mm3 (4.00-11.30)
[2018-12-19 22:02] LABS: Alanine Aminotransfer (ALT/SGP 11 U/L (12-78); Albumin, Blood 3.9 g/dL (3.4-5.0); Albumin/Globulin Ratio 1.1 (0.8-1.8); Alk Phos 65 U/L (50-136); Anion Gap 4 mmol/L (6-16); Aspartate Aminotrans (AST/SGOT 19 U/L (12-37); Bilirubin, Total 0.7 mg/dL (0.1-1.0); Blood Urea Nitrogen 17 mg/dL (8-24); Bun/Creatinine Ratio 18.4 (12.0-20.0); CO2, Blood 33 mmol/L (21-32); Calcium, Blood 8.9 mg/dL (8.5-10.1); Chloride, Blood 108 mmol/L (98-108); Creatinine, Blood 0.92 mg/dL (0.60-1.20); Globulin, Blood 3.4 g/dL (2.2-4.0); Glomerular Filtration Rate >60 (60-); Glucose, Blood 126 mg/dL (70-99); Potassium, Blood 3.4 mmol/L (3.5-5.5); Sodium, Blood 145 mmol/L (136-145); Total Protein, Blood 7.3 g/dL (6.4-8.2); Troponin I <0.015 ng/mL (0.000-0.040)
[2018-12-19 22:02] LABS: Source, Urine Clean Catch
[2018-12-19 22:07] LABS: Bilirubin, Urine Neg (Neg); Blood, Urine 1+ (Neg); Glucose Qualitative, Urine Neg (Neg); Ketones, Urine 1+ (Neg); Leukocyte Esterase, Urine Neg (Neg); Nitrite, Urine Neg (Neg); Protein, Urine 1+ (Neg); Specific Gravity, Urine 1.015 (1.003-1.022); Urobilinogen, Urine NORM (Normal); pH, Urine 6.5 (5.0-8.0)
[2018-12-19 22:16] LABS: Appearance, Urine Clear (Clear); Color, Urine Yellow (P-Yellow)
[2018-12-19 22:18] LABS: White Blood Cells, Urine Rare /hpf (0-5)
[2018-12-19 22:20] LABS: Bacteria Few /hpf; Calcium Oxalate Crystals Rare /hpf; Squamous Epithelial Cells Few /hpf (Few)
[2018-12-19] MEDS ORDERED: Bactrim Ds Tab1 EACH PO (22:43)
[2018-12-19] MEDS ORDERED: KETO10 PO (22:43)
== END 2018-12-19 23:20 | disposition home or self-care (01) ==
LOC: ER 20:58
PROVIDERS: Physician Assistant
DX: N20.0 Calculus of kidney (principal); Z88.8 Allergy status to other drugs, medicaments and biological substances; Z79.899 Other long term (current) drug therapy; Z79.82 Long term (current) use of aspirin; I10 Essential (primary) hypertension; I48.91 Unspecified atrial fibrillation; F41.9 Anxiety disorder, unspecified
CPT/HCPCS: 71045; 80053; 81001; 83880; 84484; 85025; 93005; 93010; 96374; 99285-25; J1885

== ENCOUNTER 2019-04-13 11:46 | Emergency (ER) | payer MEDICARE ==
[~2019-04-13] VITALS: Ht 175.3 cm; Wt 77.1 kg
[~2019-04-13 11:46] MED LIST changes: +Bactrim Ds Tab1 EACH PO; +Docusate Sodiu1 EACH PO; +KETO10 PO
[2019-04-13] MEDS ORDERED: Norco 5-325 Ta1 EACH PO (13:40)
[2019-04-13] MEDS ORDERED: Keflex500 MG PO (13:40)
== END 2019-04-13 13:53 | disposition home or self-care (01) ==
LOC: ER 11:46
DX: S62.662B Nondisplaced fracture of distal phalanx of right middle finger, initial encounter for open fracture (principal); G20 Parkinson's disease; I10 Essential (primary) hypertension; F41.9 Anxiety disorder, unspecified; Z79.899 Other long term (current) drug therapy; Z79.82 Long term (current) use of aspirin; W22.8XXA Striking against or struck by other objects, initial encounter
CPT/HCPCS: 29130; 73140; 99283-25

== ENCOUNTER 2019-04-18 14:19 | Emergency (ER) | payer MEDICARE ==
[~2019-04-18] VITALS: Ht 172.7 cm; Wt 77.1 kg
[~2019-04-18 14:19] MED LIST changes: +Keflex500 MG PO; +Norco 5-325 Ta1 EACH PO
[2019-04-18 14:52] LABS: BASOPHILS PERCENT AUTO 2 % (0-2); EOSINOPHILS ABSOLUTE AUTO 0.16 K/mm3 (0.00-0.68); EOSINOPHILS PERCENT AUTO 3 % (0-6); Hematocrit 49.5 % (37.0-53.0); Hemoglobin 16.1 g/dL (13.5-17.5); IMMATURE GRAN ABSOLUTE AUTO 0.01 K/mm3 (0.00-0.10); IMMATURE GRAN PERCENT AUTO 0 % (0-1); LYMPHOCYTES ABSOLUTE AUTO 1.64 K/mm3 (0.84-5.20); LYMPHOCYTES PERCENT AUTO 29 % (21-46); MONOCYTES ABSOLUTE AUTO 0.67 K/mm3 (0.16-1.47); MONOCYTES PERCENT AUTO 12 % (4-13); Mean Corpuscular HGB 28.4 pg (26.0-34.0); Mean Corpuscular HGB Conc 32.5 g/dL (31.5-36.5); Mean Corpuscular Volume 87 fL (80-100); Mean Platelet Volume 9.5 fL (9.1-12.4); NEUTROPHILS ABSOLUTE AUTO 3.09 K/mm3 (1.96-9.15); NEUTROPHILS PERCENT AUTO 55 % (41-73); Platelet Count 190 K/mm3 (150-400); RDW Coefficient Variation 14.3 % (11.7-14.2); Red Blood Cell Count 5.67 M/mm3 (4.30-5.90); White Blood Cell Count 5.67 K/mm3 (4.00-11.30)
[2019-04-18 15:23] LABS: Alanine Aminotransfer (ALT/SGP 8 U/L (12-78); Albumin, Blood 3.3 g/dL (3.4-5.0); Alk Phos 61 U/L (50-136); Anion Gap 3 mmol/L (6-16); Aspartate Aminotrans (AST/SGOT 18 U/L (12-37); Bilirubin, Total 1.3 mg/dL (0.1-1.0); Blood Urea Nitrogen 10 mg/dL (8-24); Bun/Creatinine Ratio 13.8 (12.0-20.0); CO2, Blood 33 mmol/L (21-32); Calcium, Blood 8.5 mg/dL (8.5-10.1); Chloride, Blood 108 mmol/L (98-108); Creatinine, Blood 0.72 mg/dL (0.60-1.20); Globulin, Blood 3.2 g/dL (2.2-4.0); Glomerular Filtration Rate >60 (60-); Glucose, Blood 94 mg/dL (70-99); Potassium, Blood 3.6 mmol/L (3.5-5.5); Sodium, Blood 144 mmol/L (136-145); Total Protein, Blood 6.5 g/dL (6.4-8.2)
== END 2019-04-18 16:26 | disposition home or self-care (01) ==
LOC: ER 14:19
PROVIDERS: Physician Assistant
DX: J06.9 Acute upper respiratory infection, unspecified (principal); H61.21 Impacted cerumen, right ear; I10 Essential (primary) hypertension; I48.91 Unspecified atrial fibrillation; G20 Parkinson's disease; F03.90 Unspecified dementia, unspecified severity, without behavioral disturbance, psychotic disturbance, mood disturbance, and anxiety; Z79.899 Other long term (current) drug therapy; Z79.82 Long term (current) use of aspirin
CPT/HCPCS: 71045; 80053; 85025; 99283-25

== ENCOUNTER 2019-05-25 23:50 | Observation (INO) | payer MEDICARE ==
[~2019-05-25] VITALS: Ht 177.8 cm; Wt 73.1 kg
[~2019-05-25 23:50] MED LIST changes: -TRAZ150T57 PO; +TRAZ50 PO
[2019-05-26 01:12] LABS: BASOPHILS PERCENT AUTO 1 % (0-2); EOSINOPHILS ABSOLUTE AUTO 0.07 K/mm3 (0.00-0.68); EOSINOPHILS PERCENT AUTO 1 % (0-6); Hematocrit 50.9 % (37.0-53.0); Hemoglobin 16.3 g/dL (13.5-17.5); IMMATURE GRAN ABSOLUTE AUTO 0.02 K/mm3 (0.00-0.10); IMMATURE GRAN PERCENT AUTO 0 % (0-1); LYMPHOCYTES ABSOLUTE AUTO 1.54 K/mm3 (0.84-5.20); LYMPHOCYTES PERCENT AUTO 19 % (21-46); MONOCYTES PERCENT AUTO 10 % (4-13); Mean Corpuscular HGB 28.7 pg (26.0-34.0); Mean Corpuscular Volume 90 fL (80-100); Mean Platelet Volume 9.8 fL (9.1-12.4); NEUTROPHILS ABSOLUTE AUTO 5.64 K/mm3 (1.96-9.15); NEUTROPHILS PERCENT AUTO 69 % (41-73); Platelet Count 199 K/mm3 (150-400); RDW Coefficient Variation 14.3 % (11.7-14.2); RDW Standard Deviation 47.2 fL (35.1-46.3); Red Blood Cell Count 5.67 M/mm3 (4.30-5.90); White Blood Cell Count 8.17 K/mm3 (4.00-11.30)
[2019-05-26 01:39] LABS: Alanine Aminotransfer (ALT/SGP 16 U/L (12-78); Albumin, Blood 3.7 g/dL (3.4-5.0); Albumin/Globulin Ratio 1.1 (0.8-1.8); Alk Phos 65 U/L (50-136); Anion Gap 4 mmol/L (6-16); Aspartate Aminotrans (AST/SGOT 18 U/L (12-37); Bilirubin, Total 0.9 mg/dL (0.1-1.0); Blood Urea Nitrogen 14 mg/dL (8-24); Bun/Creatinine Ratio 17.1 (12.0-20.0); CO2, Blood 34 mmol/L (21-32); Calcium, Blood 8.7 mg/dL (8.5-10.1); Chloride, Blood 109 mmol/L (98-108); Creatinine, Blood 0.82 mg/dL (0.60-1.20); Globulin, Blood 3.3 g/dL (2.2-4.0); Glomerular Filtration Rate >60 (60-); Glucose, Blood 124 mg/dL (70-99); Potassium, Blood 4.1 mmol/L (3.5-5.5); Sodium, Blood 147 mmol/L (136-145); Troponin I <0.015 ng/mL (0.000-0.040)
--- NOTE | 2019-05-26 06:47 | NUR ---
0615 REPORT RECEIVED FROM CELESTINO VASQUEZ IN ER. PT ARRIVED VIA CART FROM ER; ASSISTED INTO BED VIA SLIDER SHEET AND ASSIST X 4; SON AT SIDE AND SUPPORTIVE; .9NS AT 500CC VIA LEFT HAND 18 GUAGE. 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
[2019-05-26] MEDS ORDERED: GABA100 PO (08:58)
--- NOTE | 2019-05-26 15:01 | NUR ---
1438 PT TO DAY SURGERY VIA [facility]. REPORT GIVEN TO DANIEL Hand RN PRIOR TRANSPORT TO DAY SURGERY PT WILL RETURN FROMI DAY SURGERY TO SCU RM [id number].
--- NOTE | 2019-05-26 15:11 | NUR ---
"DAY SURGERY RN | TO OR BOTH DOCTORS AND ENDO NURSES HAVE SEEN PATIENT. FAMILY AT BEDSIDE. TO OR."
--- NOTE | 2019-05-26 15:24 | NUR ---
05/26/19 1524 YAS CLEMONS History, Chart, Medications and Allergies reviewed before start of procedure.O2 VIA N/C INTACT THROUGHOUT SEDATION/PROCEDURE. 3-LEAD EKG REVIEWED WITH PHYSICIAN PRIOR TO START OF PROCEDURE.MONITOR INTACT WITH CONTINUOUS PULSE OXIMETRY AND INTERMITTENT BP.See Anesthesia record
--- NOTE | 2019-05-26 16:33 | NUR ---
PATIENT BACK FROM PACU AFTER EGD COMPLETED. PATIENT RECEVIED GENERAL ANESTHESIA DURING PROCEDURE. SON CATHY AT BEDSIDE. PATIENT MAINTAINING SATS ON 2LO2, RT CALLED TO GET A CONTINUOUS BIOX SET UP. ATTENDS CHANGED AND PATIENT POSITIONED ON HIS BACK. REMAINS NPO. 1/2 NS AT 150ML/HR. REPORT RECEIVED FROM CELESTINO BERNARDO IN PACU. FALL PRECAUTIONS IN PLACE PER UNIT PROTOCOL.
--- NOTE | 2019-05-27 00:51 | NUR ---
BEGINNING SHIFT SUMMARY ASSUMED CARE OF PT AT 1900. PT WAS LYING IN BED WITH HIS EYES CLOSED. PT IS NONVERBAL, WILL OPEN HIS EYES TO PHYSICAL TOUCH AND VERBAL STIMULUS, SON STATED THAT NONVERBAL WAS HIS BASELINE. HEART SOUNDS IRREGULAR, PERIPHERAL PULSES WEAK BLE, NEW 20G IV IN R HAND. LUNG SOUNDS DIMINISHED WITH FINE CRACKLES AT THE BASES, BREATHING SHALLOW, PT ON CONTINUOUS BIOX SATING ABOVE 90%. BOWEL TONES HYPOACTIVE. PT HAS REDNESS ON HIS BOTTOM, BLANCHES, MEPELEX DRESSING ONTOP. PT HAD EGD TODAY AND IS RECOVERING FROM THE ANESTHESIA, CAREGIVER IN ROOM WITH PT AND STATES THAT HIS RESTLESS LEGS AND MOANING IS BASELINE BUT IT SOUNDS WORSE THAN USUAL AND IT COULD MEAN HE HAS TO USE THE RESTROOM OR HE IS IN PAIN, PT MEDICATED PER EMAR. CALL LIGHT IN REACH, BED IN LOWEST POSITION, WILL CONTINUE TO MONITOR.
[2019-05-27 05:05] LABS: Hematocrit 44.4 % (37.0-53.0); Hemoglobin 14.1 g/dL (13.5-17.5); Mean Corpuscular HGB 28.2 pg (26.0-34.0); Mean Corpuscular HGB Conc 31.8 g/dL (31.5-36.5); Mean Corpuscular Volume 89 fL (80-100); Mean Platelet Volume 10.1 fL (9.1-12.4); Platelet Count 173 K/mm3 (150-400); RDW Coefficient Variation 14.3 % (11.7-14.2); RDW Standard Deviation 45.9 fL (35.1-46.3); White Blood Cell Count 6.56 K/mm3 (4.00-11.30)
--- NOTE | 2019-05-27 05:15 | NUR ---
END SHIFT SUMMARY NO ACUTE CHANGES NOTED THROUGHOUT THE NIGHT. PT STILL HAS PERIODS OF APNEA, O2 SATUREATION STAYED ABOVE 90% ALL NIGHT. PT IS CUTTENTLY SLEEPING, CALL LIGHT IN REACH, BED IN LOWEST POSITION, WILL CONTINUE TO MONITOR UNTIL DAYSHIFT NURSE ARRIVES.
[2019-05-27 06:08] LABS: Alanine Aminotransfer (ALT/SGP 19 U/L (12-78); Albumin, Blood 2.9 g/dL (3.4-5.0); Alk Phos 56 U/L (50-136); Anion Gap 4 mmol/L (6-16); Aspartate Aminotrans (AST/SGOT 19 U/L (12-37); Bilirubin, Total 1.3 mg/dL (0.1-1.0); Blood Urea Nitrogen 16 mg/dL (8-24); Bun/Creatinine Ratio 26.4 (12.0-20.0); CO2, Blood 31 mmol/L (21-32); Calcium, Blood 8.4 mg/dL (8.5-10.1); Chloride, Blood 109 mmol/L (98-108); Creatinine, Blood 0.61 mg/dL (0.60-1.20); Glomerular Filtration Rate >60 (60-); Glucose, Blood 121 mg/dL (70-99); Potassium, Blood 4.4 mmol/L (3.5-5.5); Sodium, Blood 144 mmol/L (136-145); Total Protein, Blood 5.9 g/dL (6.4-8.2)
--- NOTE | 2019-05-27 08:47 | NUR ---
PATIENT DID NOT EAT BREAKFAST THIS SHIFT DUE TO BEING NPO AT THIS TIME.
--- NOTE | 2019-05-27 09:00 | NUR ---
PT AWAKE, NONRESPONDANT. DOES NOT REPLY TO QUESTIONS. DID OPEN EYES WHEN TALKED TO, BUT NOT FOLLOWING. LYING STILL IN BED. FEET BOTH MOVED WHEN KAROLINA FINGER UP BOTTOM FOOT. H/R REG, MURMER NOTED. NO TELE. LUNGS CLEAR, RESP EASY, UNLABORED. ON 2L O2. BT HYPOACTIVE. LAST BM UNKNOWN. ABD SOFT, NONTENDER. VOIDS INCONT IN ATTENDS. BED IN LOW POSITION, CALL LITE IN REACH, BED ALARM ON FOR SAFETY
--- NOTE | 2019-05-27 10:09 | NUR ---
PATIENTS ATTENDS WERE CHECKED AND HE WAS CLEAN AND DRY. PATIENT WAS ALSO REPOSITIONED.
--- NOTE | 2019-05-27 12:21 | NUR ---
PATIENT DID NOT EAT LUNCH THIS SHIFT DUE TO BEING NPO AT THIS TIME.
--- NOTE | 2019-05-27 13:00 | NUR ---
1300 SPOKE TO SON. MOVING PT TO COMFORT CARE AND HOSPICE AT DISCHARGE.
--- NOTE | 2019-05-27 14:30 | NUR ---
1430 PT AWAKENING. SON IN ROOM, PT ATE HALF PIECE OF PIE AND AN ICECREAM. DID WELL. TRACKING MINIMALLY. CONTINUE TO MONITOR.
--- NOTE | 2019-05-27 15:26 | NUR ---
Comfort Care: Pt was placed on comfort care. Discussed with son. Pt has all needed medical equipment in the home and the family has decided on hospice care upon discharge. They have chosen [facility] and will be ready to discharge as soon as things are arranged with the company. Symptoms discussed. Pt appears comfortable and the son has no questions about comfort medications. Pt has 5 caregivers in the home, around the clock. is elderly and frail. She is currently resting at home. Son reports that they have friends in the Medical field and he has been discussing end of life care with them for a while. He is requesting some vital signs, continuation of IV fluids for now. No other concerns. Hospice referal for care management is already ordered.
--- NOTE | 2019-05-27 16:58 | NUR ---
PATIENTS FAMILY BROUGHT IN SCHNEIDER PIE AND HE ATE ALL OF IT AND DRANK 120ML OF CRANBERRY JUICE.
--- NOTE | 2019-05-27 17:40 | NUR ---
PATIENT DID NOT EAT DINNER THIS SHIFT DUE TO BEING NPO AT THIS TIME.
--- NOTE | 2019-05-27 18:14 | NUR ---
PT HAS AWAKEN MORE. GAVE 10 MG MORPHINE FOR AGITATION/PAIN. TRIED ATIVAN WHICH APPEARS TO WORK BETTER. PT WAS TRYING TO CRAWL OUT OF BED. MORE RELAXED AFTER ATIVAN. CONTINUES NOT TO RESPOND TO QUESTIONS. BUT DOES HAVE EYES OPEN. BED IN LOW POSITION, CALL LITE IN REACH, BED ALARM ON FOR SAFETY. MONITOR ON FOR SAFETY
--- NOTE | 2019-05-27 19:40 | NUR ---
COMFORT CARE ASSESSMENT ASUMED CARE OF PT AT 1900. PT IS LYING IN BED WATCHING TV. BREATHING IRREGULAR, SHALLOW, GRUNTING WITH RESPIRATIONS, RESPIRATION COUNT 32. PT ON 2 L O2. NO S/SX PAIN AT THIS TIME. EYES OPEN AND TURNS HEAD TO VERBAL STIMULUS. CALL LIGHT IN REACH, BED IN LOWEST POSTION, WILL CONTINUE TO MONITOR.
--- NOTE | 2019-05-27 21:27 | NUR ---
COMFORT CARE ASSESSEMENT PT TURNED, CHANGED AND FLOATED. NO S/SX OF DYSPNEA OR PAIN. OPEN EYES AND TURNS HEAD TO VERBAL STIMULI. CAREGIVER IN ROOM. CALL LIGHT IN REACH, BED IN LOWEST POSTION, WILL CONTINUE TO MONITOR.
--- NOTE | 2019-05-27 23:09 | NUR ---
COMFORT CARE ASSESSMENT PT IS SLEEPING, REPIRATIONS 28, UNLABORED AND SHALLOW, O2 AT 2 L IN HIS MOUTH DUE TO MOUTH BREATHING. CALL LIGHT IN REACH, BED IN LOWEST POSTION, WILL CONTINUE TO MONITOR.
--- NOTE | 2019-05-28 02:22 | NUR ---
COMFORT CARE PT IS SLEEPING WITH HIS HEAD ELEVATED, RESPIRATIONS WNL, NO SOUNDS OF DISTRESS, SON CAME BY TO VISIT AND BROUGHT A MUSIC PLAYER THAT HAS BEEN PLAYING OCEAN WAVE SOUNDS. CALL LIGHT IN REACH, BED IN LOWEST POSTION, WILL CONTINUE TO MONITOR.
--- NOTE | 2019-05-28 03:03 | NUR ---
COMFORT CARE ASSESSMENT PT IS LYING IN BED LISTIENING TO OCEAN WAVES ON SPEAKER. PT HAS GURGLING SOUND COMING FROM THROAT, MEDICATED PER EMAR. REPOSITIONED, ORAL, AND PERSONAL CARE DONE AT THIS TIME. CALL LIGHT IN REACH, BED IN LOWEST POSITION, WILL CONTINUE TO MONITOR.
--- NOTE | 2019-05-28 05:38 | NUR ---
END SHIFT SUMMARY NO ACUTE CHANGES NOTED THROUGHOUT THE NIGHT. THE PT IS CURRENTLY SNORING, FLACC SCORE 0. OCEAN NOISES STILL PLAYING. CALL LIGHT IN REACH, BED IN LOWEST POSTION, WILL CONTINUE TO MONITOR UNTIL DAYSHIFT NURSE ARRIVES.
--- NOTE | 2019-05-28 05:40 | NUR ---
COMFORT CARE ASSESSMENT PT IS CURRENTLY SLEEPING, SCORED A 0 ON THE FLACC SCALE, PT BREATHING IS REGULAR, RESPIRATIONS 27, PT ON 2 L O2. CALL LIGHT IN REACH, BED IN LOWEST POSITION, WILL CONTINUE TO MONITOR.
--- NOTE | 2019-05-28 08:36 | NUR ---
PATIENT DID NOT EAT BREAKFAST THIS SHIFT DUE TO NOT BEING AWAKE ENOUGH TO EAT AT THIS TIME. RN NOTIFIED.
--- NOTE | 2019-05-28 10:14 | NUR ---
PT HAS SOME SECRETIONS, SET UP SUCTION, PERFORMED ORAL SUCTION AND ADMIN ATROPINE DROPS PER EMAR FOR SECRETIONS. PT LYING ON BACK. PROPPED ON PILLOWS. CLEAN AND DRY AT THIS TIME.
--- NOTE | 2019-05-28 11:06 | NUR ---
PATIENTS ATTENDS WERE CHECKED AND THEY WERE CLEAN AND DRY.
--- NOTE | 2019-05-28 12:42 | NUR ---
PATIENT DID NOT EAT LUNCH THIS SHIFT DUE TO NOT BEING AWAKE ENOUGH AT THID TIME.
--- NOTE | 2019-05-28 12:53 | NUR ---
PT RESTING, BREATHING MUCH BETTER. RELAXED. RESP RELAXED. REMAINS NONRESPONDANT
--- NOTE | 2019-05-28 17:49 | NUR ---
PT NON RESPONDANT TODAY. BECAME AGITATED EARLIER AND TREATED WITH ATIVAN. PT DID WELL, CALMED DOWN SUCTIONED ONCE, GAVE ATROPINE DROPS ONCE. SON CAME IN TO SEE AND SIT WITH DAD THIS AFT. HAS BEEN QUIET THIS AFT. NO OTHER CONCERNS AT THIS TIME. BED IN LOW POSITION, CALL LITE IN REACH, CALLS APPROP
--- NOTE | 2019-05-28 20:25 | NUR ---
COMFORT CARE PT HAS MOIST GURGGLING/GRUNTING W/BREATHING, WILL GIVE ATROPINE DROPS PER ORDERS & CONT TO MONITOR. APPEARS COMFORTABLE RESTING QUIETLY SLEEPING W/O S/S OF PAIN. CHANGED & REPOSITIONED. CALL LIGHT IN REACH.
--- NOTE | 2019-05-28 23:45 | NUR ---
COMFORT CARE PT SOUNDING MORE MOIST & GURGLY IN BACK OF THROAT, ATTEMPTED TO PROVIDE SUCTION, PT BIT DOWN. GAVE ATROPINE DROPS TO HELP W/SECRETIONS. SUPPLEMENTAL O2 IN PLACE. RAISED HOB. PT WARM, FLUSHED & DIAPHORETIC TO TOUCH, REMOVED BLANKETS. I WILL CONTINUE TO MONITOR PT
--- NOTE | 2019-05-29 04:11 | NUR ---
SHIFT SUMMARY ON COMFORT CARE. OCCASIONALLY OPENS EYES WHEN YOU STATE NAME OR W/TOUCH. NON-VERBAL. HAS HAD MOIST GURGLING & GRUNTING W/BREATHING, ALONG W/PERIODS OF APNEA. HAVE GIVEN ROXANOL TO EASE BREATHING/DISCOMFORT ALONG W/ATROPINE DROPS & SCOLOPINE PATCH TO ASSIST W/SECRETIONS PER ORDERS, SINCE PT WOULD NOT OPEN MOUTH WELL FOR SUCTION. ON 2L O2 VIA NC, PLACED IN MOUTH SINCE HE MOSTLY MOUTH BREATHS. TURNED, REPOSITIONED & CHANGED Q2H PRN FOR COMFORT. I WILL CONTINUE TO MONITOR UNTIL DAY RN ASSUMES CARE.
--- NOTE | 2019-05-29 09:32 | NUR ---
Comfort Care: Pt is resting comfortably with eyes closed. No s/s of distress. Medications reviewed, notes reviewed. Pt has all needed equipment in the home and should discharge with [facility]. No family present at this time. Will remain available.
--- NOTE | 2019-05-29 11:13 | NUR ---
PATIENT'S SON IS AT BEDSIDE. DOES NOT WANT PATIENT TO BE REPOSITIONED AT THIS TIME. ATTEMPTED TO CHANGED THE PATIENT'S BRIEF; SON STATED "I JUST CHECKED HIM AND HE IS DRY".
[2019-05-29] MEDS ORDERED: BISA10S PR (12:00)
[2019-05-29] MEDS ORDERED: ATROPINE SULFATE2 ML SL (12:00)
[2019-05-29] MEDS ORDERED: Milk Of Ma400 MG/5 M PO (12:01)
[2019-05-29] MEDS ORDERED: DOCU100 PO (12:01)
[2019-05-29] MEDS ORDERED: MORP20L SL (12:03)
[2019-05-29] MEDS ORDERED: Transderm-Scop1 EACH TOP (12:04)
--- NOTE | 2019-05-29 12:28 | NUR ---
DISCHARGE INSTRUCTIONS REVIEWED WITH PATIENT'S SON/POA; PRINTED COPY GIVEN WELL. ALL QUESTIONS ANSWERED. PATIENT'S SON WILL BE TRANSPORTING PATIENT HOME LATER THIS AFTERNOON IN HIS OWN W/C VAN.
--- NOTE | 2019-05-29 12:49 | NUR ---
PATIENT'S BRIEF IS DRY. NO NEED TO CHANGE AT THIS TIME.
--- NOTE | 2019-05-29 14:03 | NUR ---
PATIENT BEING DISCHARGED HOME ON HOSPICE AT THIS TIME. SON TRANSPORTING PATIENT IN W/C VAN. PATIENT DISCHARGED AT 1404.
== END 2019-05-29 14:08 | disposition hospice, home (50) ==
LOC: ER 23:50 → ERHOLD 23:51 → ER 05-26 05:26 → ERHOLD 05-26 05:26 → MEDS 05-26 05:26 → ERHOLD 05-26 06:16 → MEDS 05-26 06:16 → EDPENDDIS 05-29 11:44 → ENPENDDIS 05-29 11:44 → MEDS 05-29 14:08
PROVIDERS: Emergency Medicine; ADMIT Internal Medicine
PROC: 0D758ZZ Dilation of Esophagus, Via Natural or Artificial Opening Endoscopic (ICD-10-PCS; principal; 2019-05-27)
PROC: 0DB68ZX Excision of Stomach, Via Natural or Artificial Opening Endoscopic, Diagnostic (ICD-10-PCS; principal; 2019-05-27)
DX: R10.9 Unspecified abdominal pain (principal); K31.7 Polyp of stomach and duodenum; K25.9 Gastric ulcer, unspecified as acute or chronic, without hemorrhage or perforation; K31.89 Other diseases of stomach and duodenum; J96.01 Acute respiratory failure with hypoxia; G92 Toxic encephalopathy; G20 Parkinson's disease; F02.80 Dementia in other diseases classified elsewhere, unspecified severity, without behavioral disturbance, psychotic disturbance, mood disturbance, and anxiety; I16.0 Hypertensive urgency; I48.91 Unspecified atrial fibrillation; I10 Essential (primary) hypertension; R29.6 Repeated falls; N40.0 Benign prostatic hyperplasia without lower urinary tract symptoms; E86.0 Dehydration; E87.0 Hyperosmolality and hypernatremia; Z66 Do not resuscitate; Z51.5 Encounter for palliative care; Z79.82 Long term (current) use of aspirin; Z79.899 Other long term (current) drug therapy
CPT/HCPCS: 36415; 71045; 74018; 74177; 80053; 83605; 84484; 85025; 85027; 85379; 88305; 88341; 88342; 93005; 93010; 94762; 96361; 96372; 96374; 96375; 96376; 99285; G0378; J0360; J1100; J1170; J1650; J2060; J2270; J2310; J2405; J2704; J3010; J7030; J7120; Q9967